=== PATIENT | male | born 1940 | race Caucasian/White ===

== ENCOUNTER 2023-09-17 06:53 | Emergency (ER) | payer MEDICARE, SELFPAY ==
[2023-09-17 07:28] VITALS: BP 189/82; PULSE 83; RESP 18; TEMP 37.1; O2SAT 97; BMI 23.9
[2023-09-17 09:01] LABS: Add Manual Diff / Slide Review NO; Basophils Absolute Auto 100 /uL (0-100); Basophils Percent Auto 1.3 % (0-2); Eosinophils Absolute Auto 100 /uL (0-450); Eosinophils Percent Auto 0.8 % (2-4); Hematocrit 35.3 % (41-53); Hemoglobin 11.8 g/dL (13.5-17.5); Lymphocytes Absolute Auto 600 /uL (1100-4500); Lymphocytes Percent Auto 9.4 % (25-40); Mean Corpuscular HGB Conc 33.4 % (30-36); Mean Corpuscular Hemoglobin 30.3 PG (26-34); Mean Corpuscular Volume 90.5 fL (80-100); Monocytes Absolute Auto 700 /uL (0-900); Monocytes Percent Auto 11.7 % (3-14); Neutrophils Absolute Auto 4900 /uL (1500-7000); Neutrophils Percent Auto 76.8 % (50-75); Platelet Count 293 X10^3/uL (150-400); Red Cell Distribution Width 14.3 % (11.6-14.8); White Blood Cell Count 6.4 X10^3/uL (4.5-11.0)
[2023-09-17 09:10] LABS: Alanine Aminotransferase 20 IU/L (<50); Albumin 4.1 g/dL (3.5-5.0); Albumin Globulin Ratio 1.4 (1.0-2.8); Alkaline Phosphatase 99 U/L (38-126); Aspartate Aminotransferase 22 IU/L (17-59); BUN Creatinine Ratio 10.9 (6-22); Bilirubin Total 0.6 mg/dL (0.2-1.3); Blood Urea Nitrogen 21 mg/dL (9-20); Calcium 8.6 mg/dL (8.4-10.2); Carbon Dioxide 22 mmol/L (22-32); Chloride 112 mmol/L (98-107); Estimated Glomerular Filt Rate 35 mL/min (>60); Glucose 104 mg/dL (80-110); HEMOLYSIS < 15 (0-50); Potassium 4.5 mmol/L (3.4-5.1); Sodium 141 mmol/L (137-145); Total Protein 7.1 g/dL (6.3-8.2)
[2023-09-17 09:59] VITALS: BP 189/94; PULSE 84; RESP 18; O2SAT 100
--- NOTE | 2023-09-17 10:00 | ED_ITS ---
HPI - URI/Sore Throat General Chief Complaint: Upper Respiratory Symptoms Stated Complaint: PT suspects COVID Time Seen by Provider: 09/17/23 08:26 History of Present Illness HPI Narrative: 82-year-old male history of Crohn's disease on Humira chronic immunosuppression, stage 3 chronic kidney disease, complains of 2 days' duration cough and some sore throat and muscle aches, home COVID test was positive. Per phone call from his he also has history of Crohn's disease, for which she takes Humira, and has been quite prone to bacterial pneumonia with post viral infection complications, usually is treated with Levaquin 500 mg every other day for 10 day course, per their family doctor's instructions. He is interested in starting Paxlovid anti COVID antiviral treatment. Denies chest pain or shortness of breath. Related Data Previous Rx's Medication Instructions Recorded levofloxacin 500 mg tablet 500 mg PO .every other day #5 tabs 09/17/23 nirmatrelvir 150 mg-ritonavir 100 1 ea PO BID 5 days #10 ea 09/17/23 mg tablets in a dose pack (Paxlovid) Allergies Allergy/AdvReac Type Severity Reaction Status Date / Time infliximab [From Remicade] Allergy Verified 09/17/23 07:28 Patient History Social History Smoking Status: Former smoker Smoking Status: Former smoker alcohol intake frequency: a few times a month Exam Narrative Exam Narrative: GENERAL: Well-developed patient, in mild distress. HEAD: Atraumatic. Normocephalic. EYES: Pupils equal round and reactive. Extraocular motions intact. No scleral icterus. No injection or drainage. ENT: Nose without bleeding, purulent drainage. Throat without erythema, tonsillar hypertrophy or exudate. Airway patent. NECK: Trachea midline. Non tender CARDIOVASCULAR: Regular rate and rhythm without murmurs, gallops, or rubs. RESPIRATORY: Clear to auscultation. Breath sounds equal bilaterally. No wheezes, rales, or rhonchi. GASTROINTESTINAL: Abdomen soft, non-tender, nondistended. EXTREMITIES: No edema or joint tenderness. BACK: Nontender without deformity or crepitance. No flank tenderness. NEURO: AOx3. SKIN: No rash or erythema of visible areas Initial Vital Signs Initial Vital Signs: Vital Signs Temperature 98.8 F 09/17/23 07:28 Pulse Rate 83 09/17/23 07:28 Respiratory Rate 18 09/17/23 07:28 Blood Pressure 189/82 H 09/17/23 07:28 Pulse Oximetry 97 09/17/23 07:28 Oxygen Delivery Method Room Air 09/17/23 07:28 Course Orders Ordered: Discontinued Medications Levofloxacin (Levofloxacin 250 Mg Tablet) 500 mg PO NOW ONE Stop: 09/17/23 10:17 Last Admin: 09/17/23 10:24 Dose: 500 mg Documented By: RB Vital Signs Vital signs: Vital Signs - 8 hr 09/17/23 07:28 09/17/23 09:59 Temperature 98.8 F Pulse Rate 83 84 Respiratory Rate 18 18 Blood Pressure 189/82 H 189/94 H Pulse Oximetry 97 100 Oxygen Delivery Method Room Air Room Air MDM - URI/Sore Throat Lab Data Attestation: I reviewed the patient's lab results. 09/17/23 08:36 09/17/23 08:36 Labs: Lab Results 09/17/23 Range/Units 08:36 WBC 6.4 (4.5-11.0) X10^3/uL RBC 3.90 L (4.5-5.9) X10^6/uL Hgb 11.8 L (13.5-17.5) g/dL Hct 35.3 L (41-53) % MCV 90.5 (80-100) fL MCH 30.3 (26-34) PG MCHC 33.4 (30-36) % RDW 14.3 (11.6-14.8) % Plt Count 293 (150-400) X10^3/uL Neut % (Auto) 76.8 H (50-75) % Lymph % (Auto) 9.4 L (25-40) % [place] % (Auto) 11.7 (3-14) % Eos % (Auto) 0.8 L (2-4) % Baso % (Auto) 1.3 (0-2) % Neut # (Auto) 4900 (3142-3278) /uL Lymph # (Auto) 600 L (7358-5104) /uL [place] # (Auto) 700 (0-900) /uL Eos # (Auto) 100 (0-450) /uL Baso # (Auto) 100 (0-100) /uL Sodium 141 (137-145) mmol/L Potassium 4.5 (3.4-5.1) mmol/L Chloride 112 H (98-107) mmol/L Carbon Dioxide 22 (22-32) mmol/L BUN 21 H (9-20) mg/dL Creatinine 1.93 H (0.66-1.25) mg/dL Estimated GFR 35 L (>60) mL/min BUN/Creatinine Ratio 10.9 (6-22) Glucose 104 (80-110) mg/dL Calcium 8.6 (8.4-10.2) mg/dL Total Bilirubin 0.6 (0.2-1.3) mg/dL AST 22 (17-59) IU/L ALT 20 (<50) IU/L Alkaline Phosphatase 99 (38-126) U/L Total Protein 7.1 (6.3-8.2) g/dL Albumin 4.1 (3.5-5.0) g/dL Globulin 3.0 (1.7-4.1) g/dL Albumin/Globulin Ratio 1.4 (1.0-2.8) MDM Narrative Medical decision making narrative: 82-year-old male on Humira chronic immunosuppression for Crohn's disease, history of stage 3 kidney disease, now with 2 days duration upper respiratory infection symptoms, home COVID test positive, interested in Paxlovid treatment. Lab sent to check his GFR/creatinine, as there were no labs available here. Reportedly he has kidney disease, and also per phone call from in the room is prone to getting pneumonia with viral infections, usually their family doctor has him start Levaquin antibiotic 500 mg orally once every other day for 10 day course. P.o. Levaquin dose ordered. Labs pending to check GFR GFR calculates 35. Case discussed with pharmacy, for GFR 30-60 a reduced dose of Paxlovid can be given, formulation 150/100, to take the regimen twice daily for 5 day course. This will be called to his pharmacy at [facility]. We will also send prescription for Levaquin antibiotic 1 tablet every other day for 10 day course. Advised to recheck with his regular doctor in the next couple of days, return precautions discussed. Discharge Plan Departure Patient Disposition: Home Clinical Impression: COVID-19 Activity Restrictions/Additional Instructions: Viral illness symptoms for the last couple of days, home COVID tests positive, interest expressed in using Paxlovid antiviral, history of Crohn's disease and chronic immunosuppression noted, per phone call from your you are prone to pneumonia super infections, and are usually treated with Levaquin antibacterial 500 mg every other day for pneumonia course. First dose Levaquin given now, prescription for every other day dosing, 5 more tablets. Reduced dose of Paxlovid for renal insufficiency discussed with pharmacy, that renal regimen sent electronically to your pharmacy, take 1st dose as soon as possible, doses are twice daily for 5 days. Currently have no oxygen requirement, lungs sounded really clear, consider recheck with your regular provider in the next couple of days, return to this/nearest emergency department for any change worsening symptoms or any concerns prior Prescriptions: New levofloxacin 500 mg tablet 500 mg PO .every other day MDD take one tab every other day Qty: 5 0RF Paxlovid 150-100 mg tablets,dose pack 1 ea PO BID MDD renal dose regimen,. GFR 35 5 Days Qty: 10 0RF Rx Instructions: 1 ea orally; Stand Alone Forms: Patient Portal/API
[2023-09-17] MEDS: levoFLOXacin 250 MG TABLET 500 MG PO (10:24)
== END 2023-09-17 10:37 | disposition home or self-care (01) ==
PROVIDERS: Emergency Provider Emergency Medicine
DX: U07.1 COVID-19 (principal)
CPT/HCPCS: 36415; 80053; 85025; 99283